=== PATIENT | male | born 1940 | race Caucasian/White ===

== ENCOUNTER 2018-03-12 17:16 | Emergency (ER) | payer MEDICARE, BC ==
[2018-03-12] MEDS ORDERED: Ketorolac INJ* 30 MG/ML 1 ML VIAL IV ONE (17:33)
[2018-03-12] MEDS ORDERED: Ondansetron INJ* 2 MG/ML VIAL IV ONE (17:33)
[2018-03-12] MEDS ORDERED: NS 0.9% 1000 ML* 2,000 ML IV ONE (17:33)
[2018-03-12 17:48] LABS: ABS Basophils 0 10^3/ul (0-0.2); ABS Eosinophils 0 10^3/ul (0-0.6); ABS Neutrophils 8.6 10^3/ul (1.5-7.7); ABS Nucleated RBC 0 10^3/ul; Eosinophil % 0.1 % (0-6); Hematocrit 43 % (42-52); Hemoglobin 14.7 g/dl (14.0-18.0); Lymphocyte % 9.6 % (25-47); Mean Corpuscular HGB Conc 34 g/dl (31-36); Mean Corpuscular Hemoglobin 31 pg (27-31); Mean Corpuscular Volume 90 fL (80-94); Mean Platelet Volume 7.5 um3 (7.4-10.4); Nucleated Red Blood Cells % 0; Platelet Count 243 10^3/ul (150-450); Red Blood Count 4.73 10^6/ul (4.00-5.40); Red Cell Distribution Width 14 % (10.5-15); White Blood Count 10.7 10^3/ul (3.5-10.8)
[2018-03-12 17:57] LABS: INR 0.9 (0.77-1.02)
--- NOTE | 2018-03-12 18:43 | RAD ---
Indication: Left flank pain. CT of the abdomen and pelvis was performed without oral or IV contrast administration. Coronal and sagittal reconstructed images were obtained. Comparison is made with previous exam dated December 29, 2013. The lung bases demonstrate no pleural fluid, nodules or masses. Heart is of normal size without evidence of pericardial effusion. Liver is normal in size. Low density lesion in the lateral segment of left lobe of liver measures 1.5 cm consistent with a cyst or hemangioma. Additional low density lesion is noted adjacent to the gallbladder fossa in the inferior right lobe of liver. These are unchanged from December 29, 2013. The gallbladder demonstrates no calcified gallstones. No pericholecystic fluid or wall thickening is noted. The pancreas demonstrates no mass or pancreatic duct dilatation. 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 No adrenal lesions are noted. The kidneys demonstrate left hydronephrosis and hydroureter. There is a calculus at the left ureterovesicular junction measuring up to 2 mm. The right kidney shows no hydronephrosis. There appears to be a cortical cyst that is hyperdense in the upper pole of the right kidney. Correlation with ultrasound is suggested. The right kidney shows no hydronephrosis. No retroperitoneal lymphadenopathy is noted. Atherosclerotic aorta is noted. CT of the pelvis demonstrates diverticulosis without definite evidence of diverticulitis. The urinary bladder is otherwise unremarkable. IMPRESSION: Left hydronephrosis with a 2 mm calculus in the left ureterovesicular junction. Left hydroureter is noted. There is a hyperdense cyst in the upper pole of the right kidney which is more prominent than noted previously. Ultrasound on a nonemergent basis could be performed. Diverticulosis without definite evidence of diverticulitis. Low density lesions in liver consistent with cysts or hemangiomas are unchanged from prior exam.
[2018-03-12] MEDS ORDERED: Tamsulosin CAP* 0.4 MG PO ONE (18:49)
--- NOTE | 2018-03-12 18:53 | ED ---
Candace, AttebFarhat estrada, scribed for Kaushal Rich MD on 03/12/18 at 1743 . Abdominal Pain/Male - HPI Summary HPI Summary: Pt is 77 y/o M, with known dx kidney stone, presenting to ED with c/o constant left flank pain onset today around 15:00. Pain is rated an a 8/10. Associated Sx : Chills, "tingling" in head of penis. Denies dysuria, bowel changes. Pt took hydrocodone at 1500, and half a hydrocodone at 1630, but they did not alleviate the pain. Sees a urologist at [place]. PMHx: appendicitis, hernia. Denies CHF, does not take water pills. PSHx: Appendectomy. He is scheduled to have lower lumbar surgery on 03/14/18 in [place]. Pt is on blood thinners (plavix) but recently ceased for the upcoming surgery. Allergies reviewed. - History of Current Complaint Chief Complaint: EDFlankPain Stated Complaint: POSSIBLE KIDNEY STONE Time Seen by Provider: 03/12/18 17:26 Hx Obtained From: Patient Onset/Duration: Still Present Timing: Constant Severity Initially: Severe Severity Currently: Severe Pain Intensity: 8 Pain Scale Used: 0-10 Numeric Location: Flank - Left Radiates: No Character: Sharp Associated Signs And Symptoms: Positive: Other - pos: chills. neg: dysuria, bowel changes. - Allergies/Home Medications Allergies/Adverse Reactions: Allergies Allergy/AdvReac Type Severity Reaction Status Date / Time doxycycline Allergy GI Upset Verified 03/12/18 17:22 meperidine [From Demerol] Allergy GI Upset Verified 03/12/18 17:22 PMH/Surg Hx/FS Hx/Imm Hx Previously Healthy: No Endocrine/Hematology History: Denies: Hx Anticoagulant Therapy, Hx Blood Disorders, Hx Blood Transfusions, Hx Bone Marrow Disease, Hx Diabetes, Hx Systemic Lupus Erythematosus, Hx Sickle Cell Disease, Hx Thyroid Disease, Hx Anemia, Hx Unexplained Bleeding, Other Endocrine/Hematological Disorders Cardiovascular History: Reports: Hx Hypercholesterolemia Denies: Hx Aneurysm, Hx Angina, Hx Cardiac Arrest, Hx Cardiomegaly, Hx Congenital Heart Disease, Hx Congestive Heart Failure, Hx Coronary Artery Disease, Hx Deep Vein Thrombosis, Hx Hypotension, Hx Hypertension, Hx Pacemaker/ ICD, Hx Peripheral Vascular Disease, Hx Rheumatic Fever, Hx Syncope, Hx Valvular Heart Disease, Other Cardiovascular Problems/Disorders Respiratory History: Reports: Hx Chronic Bronchitis - bronchitis Denies: Hx Asthma, Hx Chronic Obstructive Pulmonary Disease (COPD), Hx Cystic Fibrosis, Hx Lung Cancer, Hx Pleural Effusion, Hx Pneumonia, Hx Pulmonary Edema, Hx Pulmonary Embolism, Hx Seasonal Allergies, Hx Sleep Apnea, Other Respiratory Problems/Disorders GI History: Denies: Hx Cirrhosis, Hx Crohn's Disease, Hx Diverticulosis, Hx Gall Bladder Disease, Hx Gastroesophageal Reflux Disease, Hx Gastrointestinal Bleed, Hx Hiatal Hernia, Hx Irritable Bowel, Hx Jaundice, Hx Obstructive Bowel, Hx Ileostomy, Hx Pyloric Stenosis, Hx Ulcer, Other GI Disorders History: Denies: Hx Acute Renal Failure, Hx Benign Prostatic Hyperplasia, Hx Chronic Renal Failure, Hx Dialysis, Hx Kidney Infection, Hx Kidney Stones, Hx Renal Disease, Other Problems/Disorders Musculoskeletal History: Reports: Hx Arthritis, Hx Back Problems, Hx Orthopedic Injury - cervical spinal fusion Denies: Hx Bursitis, Hx Congenital Bone Abnormalities, Hx Fibromyalgia, Hx Gout, Hx Osteoporosis, Hx Scoliosis, Hx Tendonitis, Other Musculoskeletal History Sensory History: Reports: Hx Contacts or Glasses, Hx Hearing Aid Denies: Hx Cataracts, Hx Eye Injury, Hx Eye Prosthesis, Hx Glaucoma, Hx Macular Degeneration, Hx Vision Problem, Hx Deafness, Hx Hearing Problem, Other Sensory Impairments Opthamlomology History: Reports: Hx Contacts or Glasses Denies: Hx Cataracts, Hx Eye Injury, Hx Eye Prosthesis, Hx Glaucoma, Hx Macular Degeneration, Hx Vision Problem, Other Sensory Impairments EENT History: Reports: Other - Chronic Bronchitis Neurological History: Reports: Hx Headaches - occasional Denies: Hx Dementia, Hx Developmental Delay, Hx Migraine, Hx Seizures, Hx Spinal Cord Injury, Hx Transient Ischemic Attacks (TIA), Other Neuro Impairments /Disorders Psychiatric History: Reports: Hx Anxiety, Hx Depression Denies: Hx Attention Deficit Hyperactivity Disorder, Hx Eating Disorder, Hx Panic Disorder, Hx Post Traumatic Stress Disorder, Hx Inpatient Treatment, Hx Community Mental Health Tx, Hx Schizophrenia, Hx Bipolar Disorder, Hx Suicide Attempt, Hx Substance Abuse, Other Psychiatric Issues/Disorders - Cancer History Hx Chemotherapy: No Hx Radiation Therapy: No - Surgical History Surgery Procedure, Year, and Place: RIGHT TOTAL KNEE 01/21-[facility] [place], CERVICAL SPINE FUSION 2009-dr. marino at [place], LT ACHILLES TENDON REPAIR , HERNIA 1996, LT SHOULDER, SINUS SURGERY 2000,. APPENDIX 1956, BILATERAL CARPAL TUNNEL 2006-[facility] [place], RIGHT WRIST GANGLION CYST REMOVAL, RIGHT SHOULDER ARTHROSCOPY, LUMBAR SURGERY FOR SPINAL STENOSIS Hx Anesthesia Reactions: No Infectious Disease History: No Infectious Disease History: Denies: Hx Clostridium Difficile, Hx Hepatitis, Hx Human Immunodeficiency Virus (HIV), Hx Shingles, Hx Tuberculosis, Traveled Outside the [place] in Last 30 Days - Family History Known Family History: Positive: Unknown - reviewed and NC - Social History Occupation: Retired Lives: With Family Alcohol Use: Weekly Hx Substance Use: No Substance Use Type: Reports: None Hx Tobacco Use: No Review of Systems Positive: Chills. Negative: Fever Negative: Other - bowel changes Positive: flank pain - L. Negative: dysuria All Other Systems Reviewed And Are Negative: Yes Physical Exam - Summary Physical Exam Summary: General: well-appearing, mild pain distress Skin: warm, color reflects adequate perfusion, dry Head: normal Eyes: EOMI, GUSTABO ENT: normal Neck: supple, nontender Respiratory: CTA, breath sounds present Cardiovascular: RRR Abdomen: mild tenderness to L flank Bowel: present Musculoskeletal: normal, strength/ROM intact Neurological: sensory/motor intact, A&O x3 Psychological: affect/mood appropriate Triage Information Reviewed: Yes Vital Signs On Initial Exam: Initial Vitals Temp Pulse Resp BP Pulse Ox 99.1 F 88 22 153/87 98 03/12/18 17:18 03/12/18 17:18 03/12/18 17:18 03/12/18 17:18 03/12/18 17:18 Vital Signs Reviewed: Yes Diagnostics - Vital Signs Vital Signs Temp Pulse Resp BP Pulse Ox 03/12/18 17:18 99.1 F 88 22 153/87 98 - Laboratory Lab Results: Lab Results 03/12/18 03/12/18 03/12/18 Range/Units 17:41 17:41 17:41 WBC 10.7 (3.5-10.8) 10^3/ul RBC 4.73 (4.00-5.40) 10^6/ul Hgb 14.7 (14.0-18.0) g/dl Hct 43 (42-52) % MCV 90 (80-94) fL MCH 31 (27-31) pg MCHC 34 (31-36) g/dl RDW 14 (10.5-15) % Plt Count 243 (150-450) 10^3/ul MPV 7.5 (7.4-10.4) um3 Neut % (Auto) 81.0 (38-83) % Lymph % (Auto) 9.6 L (25-47) % Sutton % (Auto) 9.0 H (0-7) % Eos % (Auto) 0.1 (0-6) % Baso % (Auto) 0.3 (0-2) % Absolute Neuts (auto) 8.6 H (1.5-7.7) 10^3/ul Absolute Lymphs (auto) 1.0 (1.0-4.8) 10^3/ul Absolute Monos (auto) 1.0 H (0-0.8) 10^3/ul Absolute Eos (auto) 0 (0-0.6) 10^3/ul Absolute Basos (auto) 0 (0-0.2) 10^3/ul Absolute Nucleated RBC 0 10^3/ul Nucleated RBC % 0 INR (Anticoag Therapy) 0.90 (0.77-1.02) APTT 30.8 (26.0-36.3) seconds Lactic Acid 1.2 (0.5-2.0) mmol/L C-Reactive Protein (<8.01) mg/L Lipase (11.0-82.0) U/L 03/12/18 Range/Units 17:41 WBC (3.5-10.8) 10^3/ul RBC (4.00-5.40) 10^6/ul Hgb (14.0-18.0) g/dl Hct (42-52) % MCV (80-94) fL MCH (27-31) pg MCHC (31-36) g/dl RDW (10.5-15) % Plt Count (150-450) 10^3/ul MPV (7.4-10.4) um3 Neut % (Auto) (38-83) % Lymph % (Auto) (25-47) % Sutton % (Auto) (0-7) % Eos % (Auto) (0-6) % Baso % (Auto) (0-2) % Absolute Neuts (auto) (1.5-7.7) 10^3/ul Absolute Lymphs (auto) (1.0-4.8) 10^3/ul Absolute Monos (auto) (0-0.8) 10^3/ul Absolute Eos (auto) (0-0.6) 10^3/ul Absolute Basos (auto) (0-0.2) 10^3/ul Absolute Nucleated RBC 10^3/ul Nucleated RBC % INR (Anticoag Therapy) (0.77-1.02) APTT (26.0-36.3) seconds Lactic Acid (0.5-2.0) mmol/L C-Reactive Protein < 1.00 (<8.01) mg/L Lipase 60 (11.0-82.0) U/L Result Diagrams: 03/12/18 17:41 Lab Statement: Any lab studies that have been ordered have been reviewed, and results considered in the medical decision making process. - CT A/P CT Interpretation: Positive (See Comments) - IMPRESSION: Left hydronephrosis with a 2 mm calculus in the left ureterovesicular junction. Left hydroureter is noted. ED Provider reviewed report and agrees. CT Interpretation Completed By: Radiologist Re-Evaluation - Re-Evaluation First Eval Re-Evaluation Time: 18:46 Change: Worse Comment: Discussed imaging results w pt. Pain is worsening Abdominal Pain Fem Course/Dx - Course Course Of Treatment: DISPOSITION PENDING AT SHIFT CHANGE. - Diagnoses Provider Diagnoses: Kidney stone on left side Discharge - Sign-Out/Discharge Documenting (check all that apply): Sign-Out Patient Signing out patient TO: Stephan Rodriguez - Pending pt review following meds - Discharge Plan Condition: Stable Referrals: Stuart Nathan MD [Primary Care Provider] - - Billing Disposition and Condition Condition: STABLE The documentation as recorded by the Mohini howe Michael accurately reflects the service I personally performed and the decisions made by me, Kaushal Rich MD.
[2018-03-12 19:47] LABS: Urine Appearance Clear; Urine Blood 3+ (Negative); Urine Color Yellow; Urine Ketones Trace (Negative); Urine Protein Negative (Negative); Urine Red Blood Cell 3+(>10/hpf) (Absent); Urine Specific Gravity 1.015 (1.010-1.030); Urine Urobilinogen Negative (Negative); Urine White Blood Cell Absent (Absent)
[2018-03-12 19:53] LABS: EGFR Non-African American 64.7 (>60)
[2018-03-12] MEDS ORDERED: Potassium Chlor TAB* 20 MEQ TAB.ER PO ONE (20:04)
--- NOTE | 2018-03-12 20:34 | ED ---
Brando Maria Gabriel, adalbertoed for Stephan Rodriguez MD on 03/12/18 at 2011 . Progress - Progress Note Progress Note: This patient was signed out from Dr. Rich on shift change awaiting pain medication and lab. After the pain medication the pt is feeling better. Lab work showed the patients potassium was slightly low and he was given potassium in the ED. He will be discharged home and f/u with urology. Re-Evaluation - Re-Evaluation First Eval Re-Evaluation Time: 20:10 Change: Improved Comment: The pt is feeling better and is ready to go home. Course/Dx - Course Course Of Treatment: This patient was signed out from Dr. Rich on shift change awaiting pain medication and lab. After the pain medication the pt is feeling better. Lab work showed the patients potassium was slightly low and he was given potassium in the ED. He will be discharged home and f/u with urology. - Diagnoses Provider Diagnoses: Renal colic, Left ureteral stone Discharge - Sign-Out/Discharge Documenting (check all that apply): Discharge/Admit/Transfer, Receiving Sign-Out Receiving patient FROM: Kaushal Rich - Discharge Plan Condition: Stable Disposition: HOME Prescriptions: Tamsulosin CAP* [Flomax CAP*] 0.4 mg PO DAILY #7 cap traMADol TAB* [Ultram*] 50 mg PO Q6HR PRN #14 tab MDD 4 PRN Reason: Pain Patient Education Materials: Kidney Stones (ED) Referrals: Topher Keita MD [Medical Doctor] - 3 Days Additional Instructions: RETURN TO THE EMERGENCY DEPARTMENT FOR CHANGING OR WORSENING SYMPTOMS The documentation as recorded by the Brando howe Gabriel accurately reflects the service I personally performed and the decisions made by me, Stephan Rodriguez MD.
[2018-03-12 20:42] VITALS: BP 142/82
== END 2018-03-12 20:42 | disposition home or self-care (01) ==
LOC: ED 17:16
DX: N21.1 Calculus in urethra (principal); N23 Unspecified renal colic
CPT/HCPCS: 36415; 74176; 80053; 81003; 81015; 83605; 83690; 85025; 85610; 85730; 86140; 96374; 96375; 99283; A9270-GY; J1885; J2405